=== PATIENT | male | born 1985 | race Caucasian/White ===

== ENCOUNTER 2022-04-22 05:57 | Day surgery (SDC) | payer BC, SELFPAY ==
[2022-04-22] MEDS: Lactated Ringers 1,000 ML 15 ML IV (06:39)
[2022-04-22 06:41] VITALS: BP 136/82; PULSE 80; RESP 14; TEMP 36.7; O2SAT 98; BMI 28.1
--- NOTE | 2022-04-22 07:14 | HP.PCM_ITS ---
History and Physical Date of Admission: 04/22/22 Date of Service:? 04/15/22 MR#: [id number] Acct: [id number] Name:DAPHNEY LANDIN Rep #: [id number] : 1985 ? ? Provider: Dr. Shruthi Chapman MD Age/Sex:? 37/M ? ? Location: [facility] Status: Signed Intake Vital Signs ? 04/15/2209:01 Height 5 ft 10 in Weight: 200 lb BMI 28.7 BP 157/95 H Blood Pressure Location Rt brachial Position Sitting Respiration 16 Pulse 76 Pulse Source Monitor Temp 97.5 F L Temp Source Temporal Pulse Oximetry (%) 98 Oxygen Delivery Method room air Intake Visit Reasons:?Hernia Chief Complaint: hernia Maintenance Porter Required: No Is patient in pain?: Yes Pain scale (1-10): 2 Allergies No Known Allergies Allergy (Unverified 04/16/22 08:07) Medications NK? 04/15/22 [History Confirmed 04/16/22] PFSH Medical History Chewing tobacco nicotine dependence Surgical History?(Updated 04/16/22 @ 08:13 by Jodie Cao) Hx of shoulder surgery Social History?(Updated 04/15/22 @ 09:01 by Kimberley Heredia) Smoking Status:? Current every day smoker tobacco type: smokeless tobacco alcohol intake:? current alcohol intake frequency: a few times a week substance use type:? does not use HPI HPI HPI: DAPHNEY FERNANDES, is a 37 M who presents to the office today for umbilical hernia.? 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 Patient notes last couple weeks pain at his umbilicus he is able to reduce it.? Patient is tolerating diet having bowel function.? Patient presents for repair. ROS General General: No weight change, appetite, fatigue, colon cancer, breast cancer or weakness HEENT HEENT: No difficulty swallowing, eye injury, eye surgery, swollen glands or hoarseness Endo Endocrine: No thyroid disease, diabetes mellitus, thyroid cancer, Hair loss, heat intolerance or cold intolerance Skin Skin: No rash or changing moles Breast Breast: No left breast lump, right breast lump, nipple discharge, breast pain, abnormal mammogram, abnormal US or breast enlargement Musc Musculoskeletal: No back problems, arthritis, rheumatoid arthritis, gout or joint pain Cardio Cardiovascular: No murmur, pacemaker, heart disease, atrial fibrillation, high blood pressure, heart attack, heart stent, palpitations, shortness of breat with exertion or chest pain Psych Psychiatric: No depression, anxiety or hearing voices Resp Respiratory: No shortness of breath, No sleep apnea, No cough, No COPD, No asthma, No emphysema and No wheezing Gastro Gastrointestinal: No abdominal pain, No nausea or vomiting, No diarrhea, No constipation, No blood in stool, No acid reflux, No hemorrhoids, No ulcers, No gallbladder problem and No black,tarry stools Walter Hematologic: No blood thinners, No blood disorders, No bleeding, No anemia and No blood clots Neuro Neurologic: No system reviewed and no additional complaints, except as documented, No as per HPI, No abnormal gait, No abnormal hearing, No abnormal movements, No abnormal speech, No behavioral changes, No burning sensations, No confusion, No convulsions, No disequilibrium, No dizziness, No localized weakness, No frequent falls, No headache(s), No lack of coordination, No loss of vision, No memory loss, No numbness, No other visual disturbances, No radicular pain, No restless legs, No sensory deficit, No syncope, No tingling, No t remor(s), No weakness and No other Exam Const General: cooperative, healthy appearing and no acute distress HENMT Head: normal to inspection Resp Effort & Inspection: normal respiratory effort Cardio Rate: regular rate GI Inspection: non-distended Palpation: soft, no guarding, hernia umbilical (Small-reduced) and tender (Mild at umbilical hernia) Skin General: no rashes or lesions noted Neuro General: patient oriented x3 Extrem General: no clubbing, cyanosis or edema Psych Affect: normal affect COVID (Procedure Consent) Procedure Criteria Procedure Criteria: Yes Elective The surgeon/proceduralist and patient have discussed in detail the risk of exposure to and/or potential harm posed by the COVID-19 virus with having a surgery/procedure at this time versus the risk of? delaying the surgery/procedure. It is not possible to know either the risk of delaying the surgery or procedure or chance of getting an infection with perfect accuracy, but a joint decision was made between the patient and the surgeon/proceduralist ?to proceed at this time with the scheduled surgery/procedure as indicated on the consent form. Assessment and Plan Assessment and Plan (1) Umbilical hernia without obstruction and without gangrene: ?Status:?Acute Plan Plan to do an umbilical herniorrhaphy with mesh. Reviewed the procedure with the patient including the risks, including but not limited to infection, bleeding, injury to the small bowel, and recurrence. All questions were answered. Shruthi Chapman M.D. Pager: [phone] [facility] [address] [place] [address], [address] [place] [address] Office: [phone] Coding Level of Care Code Off vis,new,level 3 Diagnoses Umbilical hernia without obstruction and without gangrene? K42.9 04/16/22 0939 <Electronically signed by Shruthi Chapman MD> Date Shruthi Chapman MD
[2022-04-22] MEDS: Cefazolin 2 GM in 0.9% Normal Saline 100 ML IV (07:39)
--- NOTE | 2022-04-22 08:09 | PCM.OPRPT ---
Report of Operation Date of Procedure: 04/22/22 Pre-Operative Diagnosis: Umbilical hernia Post-Operative Diagnosis: Incarcerated umbilical hernia Surgery/Procedure Performed:: Open incarcerated umbilical hernia repair with mesh Surgeon: Shruthi Chapman director of social services: Yanet Reid Type of Anesthesia: General/Supplemental Anesthesiologist: Juanito Brewer Special Medications: Ancef 2 g IV x1 Specimen's removed: None Estimated Blood Loss (mL): < 10 cc Fluids Replaced: Per anesthesia Description of Procedure: Patient was brought into the room placed supine on the operating table. Correct patient, procedure, site, positioning, special, was verified prior to procedure. General anesthesia was induced. The abdomen was prepped draped in usual sterile fashion. A curvilinear incision was made below the umbilicus with a 15 blade scalpel. This was deepened with electrocautery. A hemostat was used to go around the stalk of the umbilicus and Metzenbaum scissors was used to carefully divide the hernia sac from the skin of the umbilicus. The fascia around the hernia defect was cleared and the hernia defect measured 8 mm x [address] hernia patch (lot [id number] ref [id number]) small was chosen and secured to the fascia with 0 Prolene after assured it was laying flat against the fascia. The hernia defect was also closed with a [id number] 0 Prolene suture. The wound was irrigated with saline. Hemostasis was assured. The skin of the umbilicus was secured to the fascia using 3-0 Vicryl sutures interrupted ?2. The incision was closed with 3-0 Vicryl subdermal interrupted sutures and the skin was closed with interrupted 4-0 Monocryl sutures. Steri-Strips and Tegaderm and OpSite were placed over the incision once sterile cotton balls were placed in the umbilicus. Patient was extubated. Patient tolerated procedure well and was taken to the postanesthesia care unit in stable condition. Grafts/Implants Used: Ventralex ST hernia patch (lot [id number] ref [id number]) small Complications none
--- NOTE | 2022-04-22 08:13 | DCINST_ITS ---
Discharge Instructions Diet Discharge Diet: Light diet - advance as tolerated Activity May shower in (days): 5 (Keep umbilical dressing clean dry and intact for 5 days. Okay to tape off with a Ziploc bag to shower. Or lower shower and upper sponge bath.) Lifting Restrictions: no lifting >20 lbs x 2 wks, no strenuous exercise for 4 wks Additional Activity Instructions:: - Dressing / Incision Call your doctor if your incision/area has: Continuous Slow Oozing, Sudden Increased Bleeding, Increased Pain/ Swelling, Increased Redness, Foul Smelling Discharge and Swelling at the incision site Call your doctor if you observe: Fever of 101 or Higher Remove Dressing in: 5 days (After 5 days okay to remove surgical dressing. Place cotton ball or rolled up gauze in bellybutton and retape daily for 2 more days.) Cleanse incision/area with: Do not get Incision Wet (for 5 days) Additional Dressing/Incision Instructions:: Steri-Strips will fall off in 7 to 10 days, if they do not fall off okay to remove after 10 days. Follow Up Care Please Follow Up With: Shruthi Chapman MD When: Call the office for a follow-up appointment 2 weeks; after 5 PM and on the weekends call [phone] with any concerns. Test Results: Test results from this visit will be discussed in further detail at your follow- up appointment, if applicable. Discharge Plan Admission Attending Provider: Shruthi Chapman Primary Care Provider: Care Physician,[place] Primary Discharge Orders/Prescriptions Prescriptions: No Action NK Referrals / Follow Up: Care Physician,No Primary [Primary Care Provider] - Disposition Disposition (needs filled in before D/C Order can be placed): Home, Self Care
[2022-04-22] MEDS: Bupivacaine 0.25% 30 ML Vial (08:14)
[2022-04-22 08:27] VITALS: BP 136/82; BP 160/98; PULSE 89; RESP 18; TEMP 36.8; O2SAT 98
[2022-04-22 08:30] VITALS: BP 136/82; BP 160/98; PULSE 93; RESP 16; O2SAT 96
[2022-04-22 08:44] VITALS: BP 136/82; BP 142/92; PULSE 78; RESP 16; TEMP 36.8; O2SAT 100
[2022-04-22 09:04] VITALS: BP 136/82
== END 2022-04-22 09:06 | disposition home or self-care (01) ==
LOC: SDC 05:58 → AC 05:59
PROVIDERS: Referring Provider Surgery; Visit Provider Surgery
PROC: (CPT 49587; principal; 2022-04-22 07:15)
DX: K42.0 Umbilical hernia with obstruction, without gangrene (principal); F17.290 Nicotine dependence, other tobacco product, uncomplicated
CPT/HCPCS: 49587; 00750; J7120; C1781

== ENCOUNTER 2023-08-05 19:26 | Emergency (ER) | payer BC, SELFPAY ==
[2023-08-05 19:27] VITALS: BP 145/85; PULSE 83; RESP 16; TEMP 36.8; O2SAT 96; BMI 29.9
[2023-08-05 19:42] LABS: Bacteria 0 SEEN /hpf (None Seen); Mucous, Urine 0 SEEN /hpf (<or=2+); Red Blood Cells-Urine 0 SEEN /hpf (0-5); Squamous Epithelial Cells - UA 0 SEEN /hpf (0-5)
[2023-08-05 19:52] LABS: Color, Urine Yellow (Yellow); Glucose, Dipstick Normal (Normal); Ketone-Dipstick Negative (Negative); Leukocyte Esterase-Dipstick 25 /ul (Negative); Nitrite-Dipstick Negative (Negative); Occult Blood-Urine Negative /ul (Negative); Protein-Dipstick Negative (Negative); Urine Bilirubin Dipstick Negative (Negative); Urine Clarity Clear (Clear); Urine Urobilinogen Normal (Normal); Urine pH 6.5 (5.0 - 8.0)
[2023-08-05 20:00] LABS: White Blood Cells 0-5 SEEN /hpf (0-5)
--- NOTE | 2023-08-05 22:00 | ED.RN ---
2110 called pt's name and pt LWBS.
== END 2023-08-05 21:10 | disposition left against medical advice (07) ==
LOC: ED 22:22
DX: Z53.21 Procedure and treatment not carried out due to patient leaving prior to being seen by health care provider (principal)
CPT/HCPCS: 81001